=== PATIENT | male | born 1995 | race Caucasian/White ===

== ENCOUNTER 2020-12-27 18:15 | Emergency (ER) | payer OTHER ==
[2020-12-27 19:12] VITALS: BP 130/88; PULSE 91; TEMP 98.4; BMI 22.8
== END 2020-12-27 20:30 | disposition home or self-care (01) ==
LOC: JER 18:15
DX: R07.9 Chest pain, unspecified (principal)
CPT/HCPCS: 93005; 93010; 99283-25